=== PATIENT | female | born 1960 | race Caucasian/White ===

== ENCOUNTER 2023-01-11 12:54 | Emergency (ER) | payer BC ==
[~2023-01-11 12:54] MED LIST: Iopamidol 300 61% 100 ML VIAL FS ONE
[2023-01-11] MEDS ORDERED: Ketorolac Tromethamine 30 MG/ML VIAL ONE (14:22)
[2023-01-11] MEDS ORDERED: Ondansetron PF 4 MG/2 ML Vial ONE (14:22)
[2023-01-11 14:40] LABS: #Eosinphils 0.2 10x3/uL (0.0-0.5); #Monocytes 0.4 10x3/uL (0.0-1.1); #Neutrophils 6.6 10x3/uL (1.5-8.4); %Basophils 0.5 % (0.0-2.0); %Eosinophils 2.1 % (0.0-6.0); %Lymphocytes 9.5 % (18.0-47.0); %Monocytes 5.5 % (0.0-10.0); %Neutrophils 81.9 % (40.0-75.0); Hemoglobin 14.1 g/dL (12.0-15.5); Mean Corpuscular HGB CONC 32.4 g/dL (32.0-36.0); Mean Corpuscular Hemoglobin 28.6 pg (27.0-33.0); Mean Corpuscular Volume 88.2 fl (81.6-98.3); Mean Platelet Volume 9.2 fl (7.4-10.4); Platelet Count 277 10x3/uL (150-450); RBC Distribution Width 12.5 % (11.5-14.5); Red Blood Cell (RBC) Count 4.93 10x6/uL (3.90-5.03)
[2023-01-11 14:53] LABS: ALT (SGPT) 35 U/L (8-55); AST (SGOT) 35 U/L (5-34); Albumin 4.6 g/dL (3.4-4.8); Alkaline Phosphatase 124 U/L (40-110); Anion Gap 15 mmol/L (10-20); BUN (Urea Nitrogen) 14 mg/dL (9.8-20.1); Bilirubin, Total 0.6 mg/dL (0.2-1.2); Calc. Creatinine Clearance 0 mL/min (70-130); Carbon Dioxide 22 mmol/L (23-31); Chloride 106 mmol/L (98-107); Estimated GFR 69; Globulin 3.3 g/dL (2.4-3.5); Glucose 98 mg/dL (80-115); Potassium 4.3 mmol/L (3.5-5.1); Protein, Total 7.9 g/dL (5.8-8.1); Sodium 139 mmol/L (136-145)
[2023-01-11 16:57] LABS: Bilirubin Neg (Negative); Blood, Urine 10 (Negative); Clarity Clear (Clear); Glucose, Urine (Dipstick) Normal (Negative); Ketone, Urine Negative (Negative); Leukocyte Negative (Negative); Nitrite Negative (Negative); Protein, Urine (Dipstick) 15 mg/dl (Neg-Trace); Specific Gravity, Urine 1.015 (1.005-1.030); Urobilinogen Normal mg/dL (Less than 2)
[2023-01-11 17:05] LABS: Bacteria/HPF Rare-Few HPF (None Seen); RBC/HPF 0-3 HPF (0-3); WBC/HPF None Seen HPF (0-3)
== END 2023-01-11 17:19 | disposition home or self-care (01) ==
LOC: CSHERS 12:54
DX: K52.9 Noninfective gastroenteritis and colitis, unspecified (principal)
CPT/HCPCS: 74177; 80053; 81003; 81015; 83605; 85025; 96374; 96375; J1885; J2405; Q9967

== ENCOUNTER 2023-10-10 05:34 | Emergency (ER) | payer BC ==
[2023-10-10] MEDS ORDERED: HYDROcodone/Acetaminophen 10/325 mg Tablet ONE (06:33)
[2023-10-10] MEDS ORDERED: diphenhydrAMINE 50 MG/ML VIAL ONE (06:33)
[2023-10-10 06:44] LABS: #Eosinphils 0.1 10x3/uL (0.0-0.5); #Monocytes 0.7 10x3/uL (0.0-1.1); #Neutrophils 8.1 10x3/uL (1.5-8.4); %Basophils 0.4 % (0.0-2.0); %Eosinophils 1.2 % (0.0-6.0); %Lymphocytes 12.5 % (18.0-47.0); %Monocytes 6.8 % (0.0-10.0); %Neutrophils 78.8 % (40.0-75.0); Hematocrit 38.8 % (34.9-44.5); Hemoglobin 13.2 g/dL (12.0-15.5); Mean Corpuscular Hemoglobin 30.3 pg (27.0-33.0); Mean Corpuscular Volume 89.2 fl (81.6-98.3); Mean Platelet Volume 9.6 fl (7.4-10.4); Platelet Count 295 10x3/uL (150-450); RBC Distribution Width 11.6 % (11.5-14.5); Red Blood Cell (RBC) Count 4.35 10x6/uL (3.90-5.03); White Blood Cell (WBC) Count 10.3 10x3/uL (3.5-10.5)
[2023-10-10 07:01] LABS: ALT (SGPT) 20 U/L (8-55); AST (SGOT) 31 U/L (5-34); Albumin 4.1 g/dL (3.4-4.8); Alkaline Phosphatase 115 U/L (40-110); Anion Gap 21 mmol/L (10-20); BUN (Urea Nitrogen) 9 mg/dL (9.8-20.1); Bilirubin, Total 0.6 mg/dL (0.2-1.2); Calc. Creatinine Clearance 0 mL/min (70-130); Calcium 9.1 mg/dL (7.8-10.44); Carbon Dioxide 19 mmol/L (23-31); Chloride 101 mmol/L (98-107); Estimated GFR 101; Globulin 2.5 g/dL (2.4-3.5); Glucose 98 mg/dL (80-115); Potassium 3.9 mmol/L (3.5-5.1); Protein, Total 6.6 g/dL (5.8-8.1); Sodium 137 mmol/L (136-145)
[2023-10-10] MEDS ORDERED: Iopamidol 300 61% 100 ML VIAL FS ONE (09:36)
== END 2023-10-10 09:15 | disposition home or self-care (01) ==
LOC: CSHERS 05:34
DX: R13.19 Other dysphagia (principal); G89.18 Other acute postprocedural pain; M54.2 Cervicalgia; I10 Essential (primary) hypertension; Z79.899 Other long term (current) drug therapy
CPT/HCPCS: 70491; 80053; 83605; 85025; 86140; 96374; 96375; J1200; Q9967

== ENCOUNTER 2024-04-05 17:14 | Emergency (ER) | payer BC ==
[2024-04-05] MEDS ORDERED: Morphine 4 MG/ML VIAL ONE (18:13)
[2024-04-05] MEDS ORDERED: Ketorolac Tromethamine 30 MG (1 mL) VIAL ONE (19:06)
[2024-04-05] MEDS ORDERED: Orphenadrine Citrate 60 MG/2 ML VIAL ONE (19:13)
[2024-04-05] MEDS ORDERED: Lidocaine 4% Patch TD SCH (19:30)
== END 2024-04-05 20:45 | disposition home or self-care (01) ==
LOC: CSHERS 17:14
DX: M62.838 Other muscle spasm (principal); I10 Essential (primary) hypertension
CPT/HCPCS: J1885; J2272; J2360